=== PATIENT | female | born 1975 | race Asian ===

== ENCOUNTER 2022-12-19 11:32 | Emergency (ER) | payer OTHER ==
[2022-12-19] MEDS ORDERED: SODIUM CHLORIDE 0.9% 1000 ML INFUS.BAG IV ONE (11:41)
[2022-12-19] MEDS ORDERED: MECLIZINE HCL 25 MG TABLET (FP) PO ONE (11:41)
[2022-12-19 11:43] VITALS: BP 124/83; PULSE 64; RESP 18; TEMP 98.5; BMI 21.9
[2022-12-19 12:01] LABS: HCG,QUALITATIVE URINE Negative
[2022-12-19 12:03] LABS: HEMATOCRIT 46.5 % (32.4-45.2); HEMOGLOBIN 15.6 G/dL (10.7-15.3); MCH 31.9 pg (25.7-33.7); MCHC 33.5 g/dl (32.0-36.0); MEAN PLT VOLUME 10.2 fl (7.5-11.1); PLATELET COUNT 193.8 10^3/uL (134-434); RBC 4.89 10^6/uL (3.60-5.2); RDW 14.3 % (11.6-15.6); WHITE BLOOD COUNT 8.8 10^3/uL (4.0-10.8)
[2022-12-19] MEDS ORDERED: MECLIZINE HCL 25 MG TABLET (FP) ONE (12:03)
[2022-12-19 12:14] LABS: EPITHELIAL CELLS MODERATE /hpf; URINE MUCUS 2+
[2022-12-19 12:22] LABS: ALBUMIN 4.5 g/dl (3.4-5.0); BILIRUBIN,TOTAL 1.9 mg/dl (0.2-1); CALCIUM 9.5 mg/dl (8.5-10); CREATININE 0.5 mg/dl (0.55-1.3); TOT PROT 7.7 g/dl (6.4-8.2)
== END 2022-12-19 14:30 | disposition home or self-care (01) ==
LOC: FER 11:32
DX: H81.10 Benign paroxysmal vertigo, unspecified ear (principal)
CPT/HCPCS: 36415; 70450-TC; 80053; 81003; 81015; 84703; 85027; 93005; 93010; 99285-25